=== PATIENT | male | born 1950 | race Caucasian/White ===

== ENCOUNTER 2018-01-03 22:31 | Emergency (ER) | payer OTHER, BC ==
[2018-01-03 22:42] VITALS: BP 169/93; PULSE 114; TEMP 99.3; BMI 30.8
--- NOTE | 2018-01-04 01:35 | PDOC ---
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 Patient reports 4 days prior, he had a cystourethrogram procedure, states during the process the scope came off and was dropped into a bucket of urine. The patient states the tech performing the procedure pushed the scope back into the penis without sterilization. The patient presents with urinary retention accompanied with urinary urgency/ frequency and dysuria. Patient ambulated to the ED. Denies hematuria. Denies flank pain or abdominal pain. Denies shortness of breath or chest pain. Allergies: NKDA PCP: Dr. Ngo. <Yanni Berry - Last Filed: 01/04/18 04:53> - General Chief Complaint: Urinary Problem Stated Complaint: TROUBLE URINATING Time Seen by Provider: 01/04/18 01:21 Past History - Past Medical History COPD: No Diabetes: Yes Other medical history: born with one kidney - Suicide/Smoking/Psychosocial Hx Smoking History: Never smoked <Yancy Solanoreen - Last Filed: 01/04/18 01:49> <Yanni Berry - Last Filed: 01/04/18 04:53> - Past Medical History Allergies/Adverse Reactions: Allergies Allergy/AdvReac Type Severity Reaction Status Date / Time No Known Allergies Allergy Verified 01/03/18 22:38 Home Medications: Ambulatory Orders Cephalexin [Keflex] 500 mg PO TID #21 capsule 01/04/18 Review of Systems - Review of Systems Comments:: 01/04/18 02:00 GENERAL/CONSTITUTIONAL: No fever or chills. No weakness. HEAD, EYES, EARS, NOSE AND THROAT: No change in vision. No ear pain or discharge. No sore throat. CARDIOVASCULAR: No chest pain or shortness of breath. RESPIRATORY: No cough, wheezing, or hemoptysis. GASTROINTESTINAL: No nausea, vomiting, diarrhea or constipation. GENITOURINARY: (+) Dysuria, frequency and urgency to urinate. Urinary retention. No hematuria. MUSCULOSKELETAL: No joint or muscle swelling or pain. No neck or back pain. SKIN: No rash NEUROLOGIC: No headache, vertigo, loss of consciousness, or change in strength/ sensation. ENDOCRINE: No increased thirst. No abnormal weight change. HEMATOLOGIC/LYMPHATIC: No anemia, easy bleeding, or history of blood clots. ALLERGIC/IMMUNOLOGIC: No hives or skin allergy. <Yanni Berry - Last Filed: 01/04/18 04:53> *Physical Exam - Vital Signs Last Vital Signs Temp Pulse Resp BP Pulse Ox 99.3 F 114 H 20 169/93 95 01/03/18 22:39 01/03/18 22:39 01/03/18 22:39 01/03/18 22:39 01/03/18 22:39 <Trena Solano - Last Filed: 01/04/18 01:49> - Vital Signs Last Vital Signs Temp Pulse Resp BP Pulse Ox 99.3 F 114 H 20 169/93 95 01/03/18 22:39 01/03/18 22:39 01/03/18 22:39 01/03/18 22:39 01/03/18 22:39 - Physical Exam Comments: 01/04/18 01:58 GENERAL: (+) Uncomfortable. Awake, alert, and fully oriented, in no acute distress HEAD: No signs of trauma EYES: PERRLA, EOMI, sclera anicteric, conjunctiva clear ENT: Auricles normal inspection, hearing grossly normal, nares patent, oropharynx clear without exudates. Moist mucosa NECK: Normal ROM, supple, no lymphadenopathy, JVD, or masses LUNGS: Breath sounds equal, clear to auscultation bilaterally. No wheezes, and no crackles HEART: Regular rate and rhythm, normal S1 and S2, no murmurs, rubs or gallops ABDOMEN: Soft, Non-distended. Suprapubic tenderness. No flank pain. No guarding or rebound. No masses. EXTREMITIES: No pitting edema. Normal range of motion. No clubbing or cyanosis. No cords, erythema or tenderness. NEUROLOGICAL: Cranial nerves II through XII grossly intact. Normal speech, normal gait SKIN: Warm, Dry, normal turgor, no rashes or lesions noted. <Yanni Berry - Last Filed: 01/04/18 04:53> Medical Decision Making - Medical Decision Making 01/04/18 02:05 Marcano placed at the emergency department without difficulty. <Yanni Berry - Last Filed: 01/04/18 04:53> *DC/Admit/Observation/Transfer - Discharge Dispostion Decision to Admit order: No <Trena Solano - Last Filed: 01/04/18 01:49> - Attestations Scribe Attestion: 01/04/18 02:01 Documentation prepared by Yanni Berry, acting as medical administrative for Trena Solano MD. <Yanni Berry - Last Filed: 01/04/18 04:53> Diagnosis at time of Disposition: UTI (urinary tract infection), Urinary retention - Discharge Dispostion Disposition: HOME Condition at time of disposition: Improved - Prescriptions Prescriptions: Cephalexin [Keflex] 500 mg PO TID #21 capsule - Referrals Referrals: Jann Ngo MD [Primary Care Provider] - - Patient Instructions Printed Discharge Instructions: DI for Urinary Tract Infection (UTI), DI for Urinary Retention in Men - Post Discharge Activity
[2018-01-04] MEDS ORDERED: CEPHALEXIN MONOHYDRATE 500 MG CAPSULE (UD) PO ONE (01:41)
[2018-01-04 01:53] LABS: URINE APPEARANCE CLOUDY; URINE BILIRUBIN NEGATIVE (<2.0 mg/dL); URINE COLOR DKYELLOW; URINE GLUCOSE (UA) NEGATIVE (NEGATIVE); URINE KETONE TRACE (NEGATIVE); URINE NITRITE NEGATIVE (NEGATIVE); URINE UROBILINOGEN NEGATIVE mg/dL (0.2-1.0)
[2018-01-04 01:58] LABS: URINE LEUK ESTERASE 3+ (NEGATIVE); URINE PROTEIN 1+ (NEGATIVE)
[2018-01-04 02:00] LABS: URINE BACTERIA MANY /hpf (NONE SEEN); URINE MUCUS RARE
[2018-01-04] MEDS ORDERED: CEPHALEXIN MONOHYDRATE 250 MG CAPSULE (FP) ONE (02:07)
[2018-01-04 03:32] LABS: URINE APPEARANCE TURBID; URINE BILIRUBIN NEGATIVE (<2.0 mg/dL); URINE COLOR YELLOW; URINE GLUCOSE (UA) NEGATIVE (NEGATIVE); URINE KETONE TRACE (NEGATIVE); URINE NITRITE NEGATIVE (NEGATIVE); URINE UROBILINOGEN NEGATIVE mg/dL (0.2-1.0)
[2018-01-04 03:35] LABS: URINE LEUK ESTERASE 3+ (NEGATIVE); URINE PROTEIN 1+ (NEGATIVE)
[2018-01-04 03:36] LABS: URINE BACTERIA MANY /hpf (NONE SEEN); URINE MUCUS RARE; YEAST MANY
== END 2018-01-04 03:15 | disposition home or self-care (01) ==
LOC: JER 22:31
PROC: 0T9B70Z Drainage of Bladder with Drainage Device, Via Natural or Artificial Opening (ICD-10-PCS; principal; 2018-01-03)
DX: N39.0 Urinary tract infection, site not specified (principal); R33.9 Retention of urine, unspecified; E11.9 Type 2 diabetes mellitus without complications; Q60.0 Renal agenesis, unilateral
CPT/HCPCS: 81003; 81015; 87086; 87186; 99282-25